=== PATIENT | male | born 1995 | race Caucasian/White ===

== ENCOUNTER 2019-12-08 19:27 | Emergency (ER) | payer MEDICAID ==
[~2019-12-08] VITALS: Ht 177.8 cm; Wt 147.4 kg
[2019-12-08 19:36] VITALS: BP 181/101; Ht 177.8 cm; Wt 147.4 kg
== END 2019-12-08 20:42 | disposition home or self-care (01) ==
LOC: ED 19:27
DX: R51 Headache (principal)
CPT/HCPCS: J1885

== ENCOUNTER 2020-02-28 14:30 | Emergency (ER) | payer MEDICAID ==
[~2020-02-28] VITALS: Ht 177.8 cm; Wt 149.2 kg
[2020-02-28 14:52] VITALS: Ht 177.8 cm; Wt 149.2 kg
[2020-02-28 15:27] VITALS: BP 150/78
== END 2020-02-28 15:27 | disposition home or self-care (01) ==
LOC: ED 14:30
DX: J33.9 Nasal polyp, unspecified (principal); G43.909 Migraine, unspecified, not intractable, without status migrainosus